=== PATIENT | female | born 1980 | race Caucasian/White ===

== ENCOUNTER 2017-10-15 09:55 | Outpatient (CLI) | payer OTHER ==
[~2017-10-15] VITALS: Ht 157.5 cm; Wt 67.0 kg
[~2017-10-15 09:55] MED LIST: ALBUTEROL SULF8.5 GM IH; ASPIR 8181 M1 PO; ENDOCET 5-3251 EACH PO; FERAHEME510 MG/17 IV; FOLGARD RX1 TABLET PO; FOLIC ACID1 MG PO; IBUPROFEN800 MG PO; Motrin PO; NATALCARE RX1 TABLET PO; PRECOSE25 MG PO; PRENATAL TABLE1 EAC3 PO; Percocet 5/325,Endoc PO
[2017-10-15 10:15] VITALS: BP 139/82
[2017-10-15] MEDS ORDERED: TYLENOL REGULA325 MG PO (10:42)
[2017-10-15 12:48] LABS: HEMATOCRIT 38.3 % (36.0-46.0); HEMOGLOBIN 12.4 G/DL (11.9-15.5); MCH 27.3 PG (29.0-34.0); MCHC 32.4 G/DL (30.0-36.0); MCV 84.2 FL (83-99); PLATELET COUNT 260 K/uL (156-360); RBC DIS.WIDTH-CV 20.6 % (11.8-14.6); RBC DIS.WIDTH-SD 61.1 % (39-53); RED BLOOD COUNT 4.55 M/uL (3.80-5.20); WHITE BLOOD COUNT 8.8 K/uL (4.1-10.2)
[2017-10-15 12:51] LABS: BASOPHIL (%) 0.3 % (0-1); EOSINOPHIL (%) 0.5 % (0-5); IMMATURE GRANULOCYTE (%) 0.5 % (0.0-0.7); LYMPHOCYTE (%) 15.6 % (15-42); LYMPHOCYTE COUNT 1.4 K/uL (1.0-2.8); MONOCYTE (%) 4.8 % (3-12); MONOCYTE COUNT 0.4 K/uL (0-0.8); NEUTROPHIL (%) 78.3 % (45-76); NEUTROPHIL COUNT 6.9 K/uL (1.8-6.4)
[2017-10-15 14:07] VITALS: BP 120/77
== END 2017-10-15 14:25 | disposition home or self-care (01) ==
LOC: LDRP-OP 09:55 → 2WEST 09:56
PROVIDERS: Obstetrics & Gynecology
DX: O26.892 Other specified pregnancy related conditions, second trimester (principal); Z3A.20 20 weeks gestation of pregnancy; Z87.891 Personal history of nicotine dependence
CPT/HCPCS: 85025; G0378

== ENCOUNTER 2017-10-20 16:50 | Inpatient (IN) | payer OTHER ==
[~2017-10-20] VITALS: Ht 157.5 cm; Wt 67.1 kg
[2017-10-20 16:50] VITALS: BP 123/82
[~2017-10-20 16:50] MED LIST changes: +TYLENOL REGULA325 MG PO
[2017-10-20 19:15] VITALS: BP 141/82
[2017-10-20 19:49] LABS: BASOPHIL (%) 0.2 % (0-1); EOSINOPHIL (%) 0.1 % (0-5); HEMATOCRIT 36.9 % (36.0-46.0); HEMOGLOBIN 12.3 G/DL (11.9-15.5); IMMATURE GRANULOCYTE (%) 0.9 % (0.0-0.7); LYMPHOCYTE (%) 7.6 % (15-42); LYMPHOCYTE COUNT 1.5 K/uL (1.0-2.8); MCH 28.5 PG (29.0-34.0); MCHC 33.3 G/DL (30.0-36.0); MCV 85.4 FL (83-99); MONOCYTE (%) 4.7 % (3-12); MONOCYTE COUNT 0.9 K/uL (0-0.8); NEUTROPHIL (%) 86.5 % (45-76); PLATELET COUNT 231 K/uL (156-360); RBC DIS.WIDTH-CV 20.2 % (11.8-14.6); RBC DIS.WIDTH-SD 60.6 % (39-53); RED BLOOD COUNT 4.32 M/uL (3.80-5.20); WHITE BLOOD COUNT 19.7 K/uL (4.1-10.2)
[2017-10-20 20:32] VITALS: BP 120/74
[2017-10-20 21:40] VITALS: BP 119/73
[2017-10-20 22:43] VITALS: BP 120/68
[2017-10-20 23:45] VITALS: BP 115/72
[2017-10-20 23:57] LABS: SOURCE URINE
[2017-10-21] VITALS (11 sets, daily range): BP systolic 96–118; BP diastolic 60–74
[2017-10-21 00:15] LABS: AMPHETAMINE NEGATIVE (500 ng/mL); BARBITURATES NEGATIVE (200 ng/mL); BENZODIAZEPINES NEGATIVE (150 ng/mL); BUPRENORPHINE NEGATIVE (10 ng/mL); COCAINE NEGATIVE (150 ng/mL); METHADONE NEGATIVE (200 ng/mL); METHAMPHETAMINE NEGATIVE (500 ng/mL); OPIATES (MORPHINE) NEGATIVE (100 ng/mL); OXYCODONE NEGATIVE (100 ng/mL); PHENCYCLIDINE NEGATIVE (25 ng/mL); PROPOXYPHENE NEGATIVE (300 ng/mL); THC CANNABINOIDS NEGATIVE (50 ng/mL); TRICYCLIC ANTIDEPRESSANTS NEGATIVE (300 ng/mL)
[2017-10-21] MEDS ORDERED: IBUPROFEN800 MG PO (03:28)
[2017-10-21] MEDS ORDERED: AMOX TR-K CLV1 EAC4 PO (03:28)
[2017-10-21 07:49] LABS: BASOPHIL (%) 0.3 % (0-1); BASOPHIL COUNT 0.1 K/uL (0-0.1); EOSINOPHIL (%) 0.5 % (0-5); EOSINOPHIL COUNT 0.1 K/uL (0-0.3); HEMATOCRIT 33.9 % (36.0-46.0); HEMOGLOBIN 11.2 G/DL (11.9-15.5); IMMATURE GRANULOCYTE (%) 0.8 % (0.0-0.7); LYMPHOCYTE (%) 9.8 % (15-42); LYMPHOCYTE COUNT 1.6 K/uL (1.0-2.8); MCH 28.5 PG (29.0-34.0); MCV 86.3 FL (83-99); MONOCYTE (%) 6.2 % (3-12); NEUTROPHIL (%) 82.4 % (45-76); NEUTROPHIL COUNT 13.6 K/uL (1.8-6.4); PLATELET COUNT 211 K/uL (156-360); RBC DIS.WIDTH-CV 20.6 % (11.8-14.6); RBC DIS.WIDTH-SD 62.4 % (39-53); RED BLOOD COUNT 3.93 M/uL (3.80-5.20); WHITE BLOOD COUNT 16.5 K/uL (4.1-10.2)
[2017-10-21 10:36] LABS: TREPONEMA ANTIBODY NEGATIVE (NEGATIVE)
[2017-10-21 12:39] LABS: CHLAMYDIA TRACHOMATIS NEGATIVE; NEISSERIA GONORRHOEAE NEGATIVE
[2017-10-22 22:12] LABS: DRVVT Mixing Study Interp Not Indicated (()); dRVVT Screen 36 sec (<=45)
[2017-10-22 22:43] LABS: ADD PTT REFLEX? Y; PTT-LA 41 sec (<=40)
== END 2017-10-21 15:00 | disposition home or self-care (01) | DRG 774 ==
LOC: LDRP-OP 16:50 → 2WEST 16:51 → LDRP-OP 04-02 14:31
PROVIDERS: Obstetrics & Gynecology Obstetrics
PROC: 3E033VJ Introduction of Other Hormone into Peripheral Vein, Percutaneous Approach (ICD-10-PCS; principal; 2017-10-20)
PROC: 10E0XZZ Delivery of Products of Conception, External Approach (ICD-10-PCS; 2017-10-21)
DX: O36.4XX0 Maternal care for intrauterine death, not applicable or unspecified (principal); O42.912 Preterm premature rupture of membranes, unspecified as to length of time between rupture and onset of labor, second trimester; O75.3 Other infection during labor; N71.9 Inflammatory disease of uterus, unspecified; O99.52 Diseases of the respiratory system complicating childbirth; J06.9 Acute upper respiratory infection, unspecified; O99.824 Streptococcus B carrier state complicating childbirth; O32.1XX0 Maternal care for breech presentation, not applicable or unspecified; O34.219 Maternal care for unspecified type scar from previous cesarean delivery; O99.844 Bariatric surgery status complicating childbirth; O99.284 Endocrine, nutritional and metabolic diseases complicating childbirth; E28.2 Polycystic ovarian syndrome; Z3A.21 21 weeks gestation of pregnancy; Z37.1 Single stillbirth
CPT/HCPCS: 71046; 76815; 84443; 85025; 85597 90; 85613 90; 85670 90; 85730 90; 86147 90; 86747 90; 86780; 87040; 87070; 87075; 87077; 87081; 87086; 87186; 87205; 87491; 87591; 88305; G0378; J0595; J7120

== ENCOUNTER 2018-04-01 00:52 | Inpatient (IN) | payer OTHER ==
[2018-04-01] VITALS (9 sets, daily range): BP systolic 94–114; BP diastolic 51–72
[~2018-04-01] VITALS: Ht 157.5 cm; Wt 68.0 kg
[~2018-04-01 00:52] MED LIST changes: +AMOX TR-K CLV1 EAC4 PO
[2018-04-01 01:31] LABS: HEMATOCRIT 36.7 % (36.0-46.0); HEMOGLOBIN 12.6 G/DL (11.9-15.5); MCH 29.2 PG (29.0-34.0); MCHC 34.3 G/DL (30.0-36.0); PLATELET COUNT 308 K/uL (156-360); RBC DIS.WIDTH-CV 11.9 % (11.8-14.6); RBC DIS.WIDTH-SD 36.1 % (39-53); RED BLOOD COUNT 4.32 M/uL (3.80-5.20); WHITE BLOOD COUNT 19.1 K/uL (4.1-10.2)
[2018-04-01 04:38] LABS: HEMATOCRIT 28.8 % (36.0-46.0); HEMOGLOBIN 9.7 G/DL (11.9-15.5); MCH 29.4 PG (29.0-34.0); MCHC 33.7 G/DL (30.0-36.0); MCV 87.3 FL (83-99); PLATELET COUNT 294 K/uL (156-360); RBC DIS.WIDTH-CV 11.9 % (11.8-14.6); RBC DIS.WIDTH-SD 38.1 % (39-53); WHITE BLOOD COUNT 26.1 K/uL (4.1-10.2)
[2018-04-01 08:08] LABS: HEMATOCRIT 23.8 % (36.0-46.0); HEMOGLOBIN 7.9 G/DL (11.9-15.5); MCH 29.3 PG (29.0-34.0); MCHC 33.2 G/DL (30.0-36.0); MCV 88.1 FL (83-99); PLATELET COUNT 240 K/uL (156-360); RBC DIS.WIDTH-CV 12.1 % (11.8-14.6); RBC DIS.WIDTH-SD 38.9 % (39-53); WHITE BLOOD COUNT 18.7 K/uL (4.1-10.2)
[2018-04-01 08:34] LABS: CREATININE 0.5 MG/DL (0.6-1.3); GFR ESTIMATE (CALCULATED) > 59 mL/min/
[2018-04-01 12:26] LABS: HEMATOCRIT 19.7 % (36.0-46.0); MCV 89.5 FL (83-99)
[2018-04-01 12:29] LABS: HEMOGLOBIN 6.4 G/DL (11.9-15.5)
[2018-04-01] MEDS ORDERED: MOTRIN800 MG PO (18:21)
[2018-04-01] MEDS ORDERED: PERCOCET 5/31 TABLET PO (18:21)
[2018-04-01] MEDS ORDERED: FEOSOL325 MG PO (18:21)
[2018-04-02 08:28] LABS: APPEARANCE CLOUDY ((CLEAR)); BILIRUBIN NEGATIVE; BLOOD LARGE; GLUCOSE (STRIP) >=500; KETONES NEGATIVE; LEUKOCYTES NEGATIVE; NITRITE NEGATIVE; PROTEIN (STRIP) 100; SPECIFIC GRAVITY 1.028 (1.000-1.030); UROBILINOGEN 0.2 MG/DL (0.2-1.0)
[2018-04-02 08:34] LABS: COLOR RED ((YELLOW))
[2018-04-02 09:11] LABS: BACTERIA RARE /HPF; EPITHELIAL CELLS 1+ /HPF; MUCUS NONE SEEN /LPF; RED BLOOD CELLS TNTC /HPF (0-5); WHITE BLOOD CELLS 0-5 /HPF (0-5)
== END 2018-04-01 19:22 | disposition home or self-care (01) | DRG 770 ==
LOC: EME 00:52 → EDOF 03:32 → ENRESERV 03:34 → 2EASTP 05:09
PROVIDERS: Anesthesiology; Emergency Medicine; Obstetrics & Gynecology Obstetrics
DX: O03.4 Incomplete spontaneous abortion without complication (principal); O99.341 Other mental disorders complicating pregnancy, first trimester; F32.9 Major depressive disorder, single episode, unspecified; F41.0 Panic disorder [episodic paroxysmal anxiety]; O34.81 Maternal care for other abnormalities of pelvic organs, first trimester; E28.2 Polycystic ovarian syndrome; N80.9 Endometriosis, unspecified; O99.841 Bariatric surgery status complicating pregnancy, first trimester; Z87.891 Personal history of nicotine dependence; Z97.5 Presence of (intrauterine) contraceptive device; Z3A.13 13 weeks gestation of pregnancy
CPT/HCPCS: 76817; 81003; 82565; 82948; 84702; 85014; 85018; 85025; 85027; 86850; 86900; 86901; 86920; 87040; 87077; 87086; 87186; 87801; 88305; 99281; 99285; J0690; J1885; J2250; J2765; J3010; J7030; J7120; P9016